=== PATIENT | female | born 1995 | race Asian ===

== ENCOUNTER 2020-05-30 01:18 | Inpatient (IN) | payer BC ==
[~2020-05-30] VITALS: Ht 162.6 cm; Wt 77.7 kg
[2020-05-30 02:06] LABS: Source, Urine Catheter
[2020-05-30 02:09] LABS: BASOPHILS ABSOLUTE AUTO 0.04 K/mm3 (0.00-0.23); BASOPHILS PERCENT AUTO 0 % (0-2); EOSINOPHILS ABSOLUTE AUTO 0.02 K/mm3 (0.00-0.68); EOSINOPHILS PERCENT AUTO 0 % (0-6); Hematocrit 45.8 % (33.0-51.0); Hemoglobin 15.2 g/dL (11.5-16.0); IMMATURE GRAN ABSOLUTE AUTO 0.05 K/mm3 (0.00-0.10); IMMATURE GRAN PERCENT AUTO 0 % (0-1); LYMPHOCYTES ABSOLUTE AUTO 2.98 K/mm3 (0.84-5.20); LYMPHOCYTES PERCENT AUTO 25 % (21-46); MONOCYTES ABSOLUTE AUTO 0.78 K/mm3 (0.16-1.47); MONOCYTES PERCENT AUTO 7 % (4-13); Mean Corpuscular HGB 28.9 pg (26.0-34.0); Mean Corpuscular HGB Conc 33.2 g/dL (31.5-36.5); Mean Corpuscular Volume 87 fL (80-100); Mean Platelet Volume 9.1 fL (9.1-12.4); NEUTROPHILS PERCENT AUTO 68 % (41-73); Platelet Count 361 K/mm3 (150-400); RDW Coefficient Variation 11.6 % (11.7-14.2); Red Blood Cell Count 5.26 M/mm3 (3.80-5.20); White Blood Cell Count 12.07 K/mm3 (4.00-11.30)
[2020-05-30 02:09] LABS: Bilirubin, Urine Neg (Neg); Blood, Urine 1+ (Neg); Glucose Qualitative, Urine Neg (Neg); Ketones, Urine Neg (Neg); Leukocyte Esterase, Urine Neg (Neg); Nitrite, Urine Neg (Neg); Protein, Urine Neg (Neg); Specific Gravity, Urine 1.005 (1.003-1.022); Urobilinogen, Urine NORM (Normal)
[2020-05-30 02:27] LABS: Appearance, Urine Clear (Clear); Color, Urine Yellow (P-Yellow)
[2020-05-30 02:30] LABS: Acetaminophen, Random <2.0 ug/mL (10.0-30.0); Alanine Aminotransfer (ALT/SGP 21 U/L (12-78); Albumin, Blood 3.9 g/dL (3.4-5.0); Alk Phos 90 U/L (50-136); Anion Gap 7 mmol/L (6-16); Aspartate Aminotrans (AST/SGOT 17 U/L (12-37); Bilirubin, Total 0.2 mg/dL (0.1-1.0); Blood Urea Nitrogen 8 mg/dL (8-24); Bun/Creatinine Ratio 11.1 (12.0-20.0); CO2, Blood 26 mmol/L (21-32); Calcium, Blood 9.4 mg/dL (8.5-10.1); Chloride, Blood 109 mmol/L (98-108); Creatinine, Blood 0.72 mg/dL (0.40-1.00); Ethanol (Alcohol), Blood, Med 14 mg/dL; Glomerular Filtration Rate >60 (60-); Glucose, Blood 118 mg/dL (70-99); Magnesium, Blood 2.3 mg/dL (1.6-2.4); Potassium, Blood 3.8 mmol/L (3.5-5.5); Salicylate <1.7 mg/dL (2.8-20.0); Sodium, Blood 142 mmol/L (136-145); Total Protein, Blood 7.9 g/dL (6.4-8.2)
[2020-05-30 02:30] LABS: Bacteria Few /hpf; Red Blood Cells, Urine 0-2 /hpf (0-2); Squamous Epithelial Cells Not Seen /hpf (Few); White Blood Cells, Urine 0-2 /hpf (0-5)
[2020-05-30 02:36] LABS: PCO2 Arterial 33.3 mmHg (35-45); PO2 Arterial 91.7 mmHg (80-100)
[2020-05-30 02:39] LABS: U Amphetamine Screen Not Detected; U Barbituate Screen Not Detected; U Benzodiazapine Screen DETECTED; U Buprenorphine Screen Not Detected; U Cannabinoids Screen Not Detected; U Cocaine Screen Not Detected; U Methadone Screen Not Detected; U Methamphetamine Screen Not Detected; U Opiates Screen Not Detected; U Oxycodone Screen Not Detected; U Phencyclidine Screen Not Detected; U Propoxyphene Screen Not Detected
--- NOTE | 2020-05-30 05:17 | NUR ---
ASSUMPTION OF CARE RECEIVED REPORT FROM KATHLEEN IN ED AT 0315. PATIENT ARRIVED TO UNIT NEW ADMISSION AT 0420. 4 PERSON ASSIST TO BED FROM [facility]. PATIENT SEDATED ON PROPOFOL OF 60MCG/KG/MIN AND VERSED OF 7MG/HR. ETT IN PLACE 7.5 AND 21CM AT THE TEETH. VENT SETTINGS AC 16, VTE 450, PEEP 5, FIO2 25% WITH SATS 100%. CENTRAL LINE TO RIJ, C/D/I. VITALS STABLE CHARTED, TITRATING LEVOPHED DOWN PER BLOOD PRESSURE TRENDS. WILL REVIEW ORDERS AND TREAT PRESCRIBED.
--- NOTE | 2020-05-30 07:15 | NUR ---
SHIFT SUMMARY PATIENT REMAINS INTUBATED AND SEDATED. VITALS STABLE. DECREASING LEVOPHED PER BLOOD PRESSURE AND PROPOFOL PER SEDATION LEVEL. ORDERS REVIEWED AND REPORT GIVEN TO MARY HADDAD.
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
--- NOTE | 2020-05-30 08:30 | NUR ---
INITIAL ASSESSMENT PATIENT INTUBATED AND SEDATED. PATIENT RESPONDING TO NOXIOUS STIMULI AND ORAL CARE WITH GROSS MOVEMENTS OF EXTREMITIES AND GRIMACING OF FACE. SCLERAL EDEMA NOTED. PATIENT AFEBRILE. NO SIGNS OF PAIN NOTED. PATIENT SATTING 90% AND GREATER ON AC 16, TV 450, PEEP 5 AND 25% FIO2. LUNGS CLEAR THROUGHOUT. PATIENT IN SR, HR LOW 50S TO 70. SBP 90S TO LOW 100S ON LEVOPHED DRIP. OG TO LIS. LAST DATE OF BM UNKNOWN. FERMIN DRAINING CLEAR/ LIGHT YELLOW COLORED URINE. CUTTING SCARS NOTED TO L FA. PROPOFOL INFUSING AT 30 MCG/ KG/ MINUTE, NS AT 125 MLS/ HOUR, VERSED AT 2 MG/ HOUR, LEVOPHED AT 2 MCG/ MINUTE. BED LOW, CALL LIGHT IN REACH. WILL CONTINUE TO MONITOR PATIENT FREQUENTLY THROUGHOUT SHIFT.
--- NOTE | 2020-05-30 12:30 | NUR ---
PATIENT AFEBRILE. PATIENT AGITATED AND STRONG WHEN SEDATION DECREASED. PATIENT DID SQUEEZE HANDS WHEN ASKED BUT DID NOT FOLLOW ANY OTHER COMMANDS AT THIS TIME. NO CHANGE IN VENT SETTINGS. LEVOPHED ON SB. PROPOFOL AT 50 MCG/ KG/ MINUTE. NO OTHER ACUTE CHANGES TO NOTE ON AT THIS TIME. WILL CONTINUE TO MONITOR.
[2020-05-30] MEDS ORDERED: MELATONIN5 M1 PO (14:45)
[2020-05-30] MEDS ORDERED: GABA100 PO (14:45)
[2020-05-30] MEDS ORDERED: GUANFACINE (14:46)
[2020-05-30] MEDS ORDERED: PRAZ1 PO (14:47)
[2020-05-30] MEDS ORDERED: TEMA7.5 PO (14:48)
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
--- NOTE | 2020-05-30 16:42 | NUR ---
ASSUMED CARE OF PT FROM CATIE HERNANDEZ. UPON ASSESSMENT PT WAS VERY RESTLESS IN BED, OVER BREATHING VENT. LEAD FRONT DESK AGENT AT BEDSIDE INITIATING PRCEDEX GTT DURING REPORT. AFTER GTT ADDED ON, PT RELAXED AND WAS ABLE TO REST. HRR, SINUS RHTYHM ON THE MONITOR. VENT REMAINS ON AC 16/450/5 FIO2 25%, LUNGS ARE CLEAR. OG TUBE TO LIS. FERMIN TO GRAVITY DRAINAGE.
--- NOTE | 2020-05-30 18:17 | NUR ---
SHIFT SUMMARY PT IS SEDATED ON VENT A/C 16/450/5 FIO2 25%. PRECEDEX GTT AND PROPOFOL BEING UTILIZED TO KEEP PT SEDATED TO TOLERATE THE VENT. VITALS ARE STABLE. SINUS ROSARIO ON THE MONITOR WITH RATE MID 50'S. POISON CONTROL RECENTLY CALLED FOR UPDATE WITH NO NEW RECOMMENDATIONS. FERMIN IN PLACE TO GRAVITY, DRAINING CLEAR YELLOW URINE.
--- NOTE | 2020-05-30 19:19 | NUR ---
ASSUMPTION OF CARE RECEIVED REPORT FROM DEMETRICE HADDAD. ASSUMED CARE OF PATIENT. PATIENT SEDATED ON PROPOFOL AND PRECEDEX, SAS OF 3, VENTILATED FIO2 OF 25% O2 SATS OF 99%. NO S/S OF DISTRESS. VITALS STABLE, IVF INFUSING ORDERED. FERMIN CATHETER DRAINING CLEAR, YELLOW URINE. WILL REVIEW ORDERS AND TREAT PRESCRIBED.
--- NOTE | 2020-05-30 20:20 | NUR ---
VISITOR MOTHER TO BEDSIDE PER CHARGE NURSE'S APPROVAL. DISCUSSED LENGTH OF STAY AND VISITING HOURS WITH MOTHER WHO JUST ARRIVED FROM [place]. SHE VERBALIZED UNDERSTANDING.
--- NOTE | 2020-05-30 23:27 | NUR ---
AGITATION AT 2300 PATIENT BEGAN PULLING AT RESTRAINTS, EYE OPENED. FOLLOWING COMMANDS. RN TO BEDSIDE ORIENTING TO SITUATION. PATIENT BECAME ANXIOUS, SHAKING, AND MAKING A WRITING MOTION WITH HER LEFT HAND. ASKED PATIENT IF SHE WANTED TO WRITE, PATIENT NODDED HEAD YES. PEN AND PAPER PROVIDED AND PATIENT BEGAN WRITING, UNABLE TO INTERPRET PATIENT'S WRITING EXCEPT AN "H" AND A "U". ASKED PATIENT IF SHE WAS WRITING , NODDED HEAD YES. EXPLAINED HER HAD BEEN IN [place] AND WOULD RETURN TOMORROW. PATIENT BECAME VISIBILY UPSET, SHAKING HEAD NO, TREMORS TO ARMS AND PATIENT TRYING TO MOVE OUT OF BED. ASKED IF SHE WANTED HER HERE AND SHE SHOOK HER HEAD NO CONTINUOUSLY. EXPLAINED TO PATIENT SHE WAS SAFE, HER MOTHER HAD BEEN HERE AND WE WOULD KEEP HER COMFORTABLE. PATIENT BEGAN TO RELAX. RESTARTED PRECEDEX FOR COMFORT. PATIENT NOW SAS OF 3, VITALS STABLE. WILL CONTINUE TO MONITOR.
--- NOTE | 2020-05-31 | NUR ---
REASSESSMENT NO ACUTE CHANGES FROM PREVIOUS ASSESSMENT. SEDATED AND VENTILATED CHARTED. VITALS STABLE, NO S/S OF DISTRESS. FERMIN DRAINING CLEAR, YELLOW URINE. WILL CONTINUE TO MONITOR.
[2020-05-31 03:58] LABS: BASOPHILS ABSOLUTE AUTO 0.02 K/mm3 (0.00-0.23); BASOPHILS PERCENT AUTO 0 % (0-2); EOSINOPHILS ABSOLUTE AUTO 0.05 K/mm3 (0.00-0.68); EOSINOPHILS PERCENT AUTO 1 % (0-6); Hematocrit 35.9 % (33.0-51.0); Hemoglobin 12.3 g/dL (11.5-16.0); IMMATURE GRAN ABSOLUTE AUTO 0.02 K/mm3 (0.00-0.10); IMMATURE GRAN PERCENT AUTO 0 % (0-1); LYMPHOCYTES ABSOLUTE AUTO 1.34 K/mm3 (0.84-5.20); LYMPHOCYTES PERCENT AUTO 15 % (21-46); MONOCYTES ABSOLUTE AUTO 0.52 K/mm3 (0.16-1.47); MONOCYTES PERCENT AUTO 6 % (4-13); Mean Corpuscular HGB 29.4 pg (26.0-34.0); Mean Corpuscular HGB Conc 34.3 g/dL (31.5-36.5); Mean Corpuscular Volume 86 fL (80-100); Mean Platelet Volume 8.7 fL (9.1-12.4); NEUTROPHILS ABSOLUTE AUTO 7.16 K/mm3 (1.96-9.15); NEUTROPHILS PERCENT AUTO 79 % (41-73); Platelet Count 246 K/mm3 (150-400); RDW Coefficient Variation 11.6 % (11.7-14.2); Red Blood Cell Count 4.18 M/mm3 (3.80-5.20); White Blood Cell Count 9.11 K/mm3 (4.00-11.30)
--- NOTE | 2020-05-31 04:00 | NUR ---
REASSESSMENT NO ACUTE CHANGES FROM PREVIOUS ASSESSMENT. RT TO BEDISDE FOR BREATHING TRIAL, SEDATION TURNED OFF. WILL MONITOR PATIENT'S PROGRESS.
[2020-05-31 04:16] LABS: Alanine Aminotransfer (ALT/SGP 22 U/L (12-78); Albumin/Globulin Ratio 0.9 (0.8-1.8); Alk Phos 73 U/L (50-136); Anion Gap 7 mmol/L (6-16); Aspartate Aminotrans (AST/SGOT 19 U/L (12-37); Bilirubin, Total 0.7 mg/dL (0.1-1.0); Blood Urea Nitrogen 3 mg/dL (8-24); Bun/Creatinine Ratio 5.2 (12.0-20.0); CO2, Blood 22 mmol/L (21-32); Calcium, Blood 7.9 mg/dL (8.5-10.1); Chloride, Blood 115 mmol/L (98-108); Creatinine, Blood 0.57 mg/dL (0.40-1.00); Globulin, Blood 3.2 g/dL (2.2-4.0); Glomerular Filtration Rate >60 (60-); Glucose, Blood 99 mg/dL (70-99); Magnesium, Blood 1.8 mg/dL (1.6-2.4); Phosphorus, Blood 2.2 mg/dL (2.5-4.9); Potassium, Blood 3.1 mmol/L (3.5-5.5); Sodium, Blood 144 mmol/L (136-145); Total Protein, Blood 6.2 g/dL (6.4-8.2)
--- NOTE | 2020-05-31 04:45 | NUR ---
LABS REPORTED PATIENT'S POTASSIUM AND PHOS LEVELS TO DR. LOPEZ. RECIEVED ORDERS FOR POTASSIUM REPLACEMENT BUT DIRECTIONS TO HAVE DAY SHIFT PHYSICIAN ADDRESS PHOS LEVEL. WILL REPORT THIS TO ONCOMING RN.
[2020-05-31 05:28] LABS: PCO2 Arterial 30.4 mmHg (35-45); PO2 Arterial 73.1 mmHg (80-100); pH Blood Arterial 7.45 (7.35-7.45)
--- NOTE | 2020-05-31 06:10 | NUR ---
SHIFT SUMMARY PATIENT ON PROPOFOL OF 30MCG/KG/MIN, PRECEDEX OF 0.2 MCG/KG/HR, AWAKENS EASILY, FOLLOWS COMMANDS. NODS HEAD YES WHEN ASKED IF SHE IS COMFORTABLE. TOLERATING VENTILATOR WELL. VITALS STABLE. POTASSIUM REPLACEMENT INFUSING ORDERED. PATIENT REQUESTING TO WRITE, ASKING IF HER WILL BE HERE. THIS RN CLARIFIED IF PATIENT WOULD WANT MOTHER OR TO VISIT. PATIENT WROTE AND POINTED TO HIS NAME. ASKED IF MOTHER COULD VISIT PATIENT NODDED HEAD YES BUT THEN POINTED TO AGAIN PRIORITY VISITOR. EXPLAINED TO PATIENT WHEN SHE COULD EXPECT VISITORS AND THE PLAN TO KEEP HER RESTING UNTIL THE PHYSICIAN COMES IN TO SEE HER. PATIENT NODDED HEAD AND BEGAN RESTING. WILL CONTINUE TO MONITOR AND REPORT TO ONCOMING RN.
--- NOTE | 2020-05-31 08:30 | NUR ---
ASSUMED CARE / DR SETH: REPORT RECEIVED FROM SAHARA Tran RN. ASSUMED CARE OF THIS PT AT APPROX 0700. ON ASSESSMENT, THE PT IS LIGHTLY SEDATED W/ PROPOFOL & PRECEDEX - SEE FLOWSHEET FOR DRIP TITRATION. SHE IS OPENING EYES SPONTANEOUSLY, FOLLOWING DIRECTION & COMMUNICATING BY WRITING WORDS W/ A PEN & PAPER. SHE IS INTUBATED W/ A 7.5 ETT, NOTED TO BE 21.0 CM ATT. VENT SETTINGS: AC 16/450/5/25% W/ O2 SATS > 92%. MONITOR SHOWS SR-ST W/ HR 90-100s, BP STABLE. HYPOTENSION W/ SBP 90s NOTED DURING TIMES OF INCREASED SEDATION. OGT IN PLACE TO LIS, BT x4 QUADS. TEMP FERMIN PATENT/ DRAINING CLEAR YELLOW URINE. SKIN OVERALL CDI, SOME SCARRING NOTED TO L FA, PT's MOTHER HAS REPORTED THIS IS FROM SELF-HARM R/T "CUTTING." DR SETH HAS BEEN AT BEDSIDE TO EVAL PT. K & PHOS LEVELS DISCUSSED. SHE WOULD LIKE A F/U RENAL PANEL TO BE DRAWN AT 1000 & WILL ORDER FURTHER REPLETION PRN BASED ON THOSE RESULTS. SHE ALSO STS OKAY TO PLACE A PSYCH CONSULT IF IT IS DETERMINED THAT THE PT WILL BE EXTUBATED. WILL CONTINUE TO MONITOR & UPDATE NEEDED.
--- NOTE | 2020-05-31 09:20 | NUR ---
DR CARVER: PROVIDER AT BEDSIDE TO EVAL PT. SHE HAS CHANGED VENT SETTINGS TO SPONTANEOUS W/ PS 5, PEEP 5 & FIO2 25%. THE PT NEEDS ENCOURAGEMENT AT TIMES TO CONTINUE TAKING DEEP BREATHS SHE FALLS ASLEEP & DOES NOT HAVE AN ADEQUATE RR OR TVs. THE PLAN IS FOR POSSIBLE EXTUBATION AT APPROX 1000 IF PT CONTINUES TO TOLERATE WELL. ROSALINE Condon, RT, HAS BEEN NOTIFIED OF THIS.
[2020-05-31 10:41] LABS: Albumin, Blood 3.2 g/dL (3.4-5.0); Anion Gap 6 mmol/L (6-16); Blood Urea Nitrogen 3 mg/dL (8-24); Bun/Creatinine Ratio 4.7 (12.0-20.0); CO2, Blood 23 mmol/L (21-32); Calcium, Blood 8.2 mg/dL (8.5-10.1); Chloride, Blood 116 mmol/L (98-108); Creatinine, Blood 0.64 mg/dL (0.40-1.00); Glomerular Filtration Rate >60 (60-); Glucose, Blood 92 mg/dL (70-99); Phosphorus, Blood 2.7 mg/dL (2.5-4.9); Potassium, Blood 3.2 mmol/L (3.5-5.5); Sodium, Blood 145 mmol/L (136-145)
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
--- NOTE | 2020-05-31 15:03 | NUR ---
UDPATE: DR CARVER WILL BE SIGNING OFF OF THIS PT's CASE. STS OKAY TO TX TO MEDICAL FLOOR SINCE PRECEDEX HAS BEEN OFF SINCE APPROX 1235 & PT REMAINS STABLE W/ O2 SATS > 95% ON RA. SHE WOULD LIKE THE CENTRAL LINE TO R IJ & FERMIN TO BE D/C'd. STS OKAY TO FINISH CURRENT KCL INFUSION PRIOR TO CENTRAL LINE REMOVAL FOR PT's COMFORT. DR SETH IN UNIT & IS AGREEABLE TO TX. VALERIANO Verdugo, MODEL BUILDER DISPLAY, HAS CONTACTED DR RIOS TO DETERMINE IF HE WILL BE SEEING THE PT THIS SHIFT SHE IS VERY ANXIOUS REGARDING THIS. HE STS THAT HE IS UNABLE TO SEE THE PT TODAY BECAUSE OF NUMEROUS OTHER CONSULTS BUT SUGGESTS THAT TELEPSYCH MAY BE A GOOD OPTION IF THE PT IS ALERT & WILLING TO PARTICIPATE. DR SETH IS AGREEABLE TO THIS WELL & ORDERS HAVE BEEN PLACED.
[2020-05-31] MEDS ORDERED: GABA300 PO (15:09)
[2020-05-31] MEDS ORDERED: PRAZ1 PO (15:11)
[2020-05-31] MEDS ORDERED: NEURONTIN600 MG PO ×2 (15:11)
--- NOTE | 2020-05-31 15:30 | NUR ---
POISON CONTROL: CALL FROM [facility]. SHE HAS REQUESTED AN UPDATE ON THIS PT. UPDATED HER ON PT's VS & MOST RECENT LABS. SHE AGREES WITH A STATUS CHANGE TO MEDICAL FOR THIS PT & STS NO CHANGES AT THIS TIME. THEY WILL CONTINUE TO FOLLOW FOR NOW.
[2020-05-31] MEDS ORDERED: INTUNIV2 MG PO (16:01)
[2020-05-31] MEDS ORDERED: MIRT15 PO (16:03)
--- NOTE | 2020-05-31 17:12 | NUR ---
CENTRAL LINE REMOVAL / TRANSFER TO [facility] FLOOR: CL TO RIGHT IJ HAS BEEN REMOVED AT 1650. PT LYING SUPINE DURING THIS TIME. SHE IS ABLE TO TAKE A DEEP BREATH IN & HUM WHILE EXHALING WHILE CENTRAL LINE CATHETER IS REMOVED. MANUAL PRESSURE HELD TO SITE FOR APPROX 10 MINS AT WHICH TIME NO BLEEDING IS NOTED FROM SITE & TEGADERM CHG DRESSING IS PLACED TO COVER PUNCTURE SITE. REPORT HAS BEEN GIVEN TO CHRIS Mcknight RN TO ASSUME CARE. CHART & ALL PT BELONGINGS HAVE BEEN TAKEN UP TO ROOM 344 W/ PT. KASANDRA MCCRACKEN & TERESA, 1:1 SITTER AT BEDSIDE FOR TX VIA BED AT 1740.
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
--- NOTE | 2020-06-01 02:10 | NUR ---
VINNY REPORTS THE DYSURNIA IS VERY UNCOMFORTABLE AND SHE IS UNABLE TO SLEEP DUE TO HAVING TO USE THE BATHROOM SO MUCH. CALLED MD AND GOT ORDER FOR UA, AND FOR PYRIDIUM. WILL MEDICATE WHEN PHARMACY VERIFIES. CLEAN HAT PLACED IN BATHROOM.
[2020-06-01 03:42] LABS: Source, Urine Clean Catch
[2020-06-01 03:45] LABS: Bilirubin, Urine Neg (Neg); Blood, Urine 3+ (Neg); Glucose Qualitative, Urine Neg (Neg); Ketones, Urine 3+ (Neg); Leukocyte Esterase, Urine 1+ (Neg); Nitrite, Urine Neg (Neg); Protein, Urine Neg (Neg); Urobilinogen, Urine NORM (Normal)
[2020-06-01 03:53] LABS: Appearance, Urine Clear (Clear); Color, Urine Yellow (P-Yellow)
[2020-06-01 04:15] LABS: Bacteria Few /hpf; Red Blood Cells, Urine 0-2 /hpf (0-2); Squamous Epithelial Cells Few /hpf (Few); White Blood Cells, Urine 0-2 /hpf (0-5)
--- NOTE | 2020-06-01 05:11 | NUR ---
SHIFT SUMMARY: VINNY IS AOX3, PLEASANT AND COOPERATIVE THIS SHIFT. SHE DID VERBALIZE FRUSTRATIONS AT START OF SHIFT. PLEASE SEE MY ASSUMPTION OF CARE NOTE FOR DETAILS. SHE DENIED ANY THOUGHTS OF SUICIDE, HARMING SELF, OR OTHERS. STATES SHE WOULD NEVER DO THAT. 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 SHE STATED THIS WAS A MIS-UNDERSTANDING THAT SHE DID NOT KNOW ALCOHOL SHOULD NOT BE TAKEN WITH HER BENZO'S, AND THAT HER FRIEND MIS-UNDERSTOOD WHAT SHE WAS SAYING ON THE PHONE. ALSO VERIFIED WITH HER THAT HER IS NOT ABUSIVE PHYSICALLY OR EMOTIONALLY. SHE DID HAVE HER TELEHEALTH APPOINTMENT WHICH WENT WELL. HE DID TELL HER THAT HE DOES NOT SEE THE NEED FOR HER TO BE HERE BUT HAVE NOT SEEN THE REPORT. HER BEHAVIOR HAS BEEN APPROPRIATE THIS SHIFT. SHE HAS FREQUENT URINATION AND SEVERE DYSURIA. GOT ORDER FOR PYRIDIUM AND UA. UA WAS SENT FOR CULTURE, MORE THEN LIKELY DUE TO HER HAVING A CATHETER. 1:1 SITTER WAS IN ROOM ALL NIGHT. SHE HOPES SHE CAN GO HOME TODAY HER AND HER CAN NOT AFFORD TO MISS ANOTHER DAY. NO OTHER CHANGES TO REPORT THIS SHIFT. CALL LIGHT REMAINS IN REACH.
--- NOTE | 2020-06-01 05:43 | NUR ---
PATIENT HAS REFUSED MORNING LABS, STATES SHE HAS BEEN POKED ENOUGH AND DOES NOT WANT TO BE ANYMORE. THEY WILL WAIT TILL MORNING SHIFT AND SEE IF THEY CAN CONVINCE HER THEN.
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
--- NOTE | 2020-06-01 14:43 | NUR ---
DISCHARGE PT DISCHARGED TO HOME. THIS RN EXPLAINED DISCHARGE INSTRUCTIONS TO PT AND REPORTS SHE UNDERSTANDS. IV REMOVED WITHOUT DIFFICULTY. PT TRANSFERRED TO PRIVATE VEHICLE, INDEPENDENTLY. PT'S SPOUSE AT SIDE. BELONGINGS WITH PT.
[2020-06-01 14:49] LABS: Albumin, Blood 3.9 g/dL (3.4-5.0); Anion Gap 8 mmol/L (6-16); Blood Urea Nitrogen 6 mg/dL (8-24); Bun/Creatinine Ratio 9.1 (12.0-20.0); CO2, Blood 24 mmol/L (21-32); Chloride, Blood 109 mmol/L (98-108); Creatinine, Blood 0.66 mg/dL (0.40-1.00); Glomerular Filtration Rate >60 (60-); Glucose, Blood 123 mg/dL (70-99); Magnesium, Blood 2.3 mg/dL (1.6-2.4); Phosphorus, Blood 4.3 mg/dL (2.5-4.9); Potassium, Blood 3.8 mmol/L (3.5-5.5); Sodium, Blood 141 mmol/L (136-145)
== END 2020-06-01 14:32 | disposition home or self-care (01) | DRG 917 ==
LOC: ER 01:18 → MEDS 03:20 → EDBD 03:21 → ICUW 03:21 → ICUE 03:21 → MEDS 03:21 → ICUE 04:01 → MEDS 05-31 17:39
PROVIDERS: Emergency Medicine; Internal Medicine; Internal Medicine Critical Care Medicine; ADMIT Family Medicine
PROC: 02HV33Z Insertion of Infusion Device into Superior Vena Cava, Percutaneous Approach (ICD-10-PCS; principal; 2020-05-30)
PROC: 3E043XZ Introduction of Vasopressor into Central Vein, Percutaneous Approach (ICD-10-PCS; 2020-05-30)
PROC: 3E1G78Z Irrigation of Upper GI using Irrigating Substance, Via Natural or Artificial Opening (ICD-10-PCS; 2020-05-30)
PROC: 3E02340 Introduction of Influenza Vaccine into Muscle, Percutaneous Approach (ICD-10-PCS; 2020-05-30)
PROC: 0BH17EZ Insertion of Endotracheal Airway into Trachea, Via Natural or Artificial Opening (ICD-10-PCS; 2020-05-30)
PROC: 5A1945Z Respiratory Ventilation, 24-96 Consecutive Hours (ICD-10-PCS; 2020-05-30)
DX: T42.4X2A Poisoning by benzodiazepines, intentional self-harm, initial encounter (principal); J96.01 Acute respiratory failure with hypoxia; I95.2 Hypotension due to drugs; Y92.9 Unspecified place or not applicable; T68.XXXA Hypothermia, initial encounter; F10.929 Alcohol use, unspecified with intoxication, unspecified; F43.10 Post-traumatic stress disorder, unspecified; Y90.0 Blood alcohol level of less than 20 mg/100 ml; Z78.1 Physical restraint status; E87.6 Hypokalemia; Z23 Encounter for immunization
CPT/HCPCS: 31500; 31720; 36415; 36556; 36600; 43753; 51702; 70450; 71045; 80053; 80069; 81001; 81025; 82330; 82803; 83735; 84100; 84436; 84443; 85025; 87077; 87086; 87186; 93005; 93010; 94002; 94003; 96365-59; 96375-59; 96376-59; 99291-25; A9270; C1751; G0480; J0330; J1265; J1650; J2060; J2543; J2704; J3010; J3411; J3480; J7030; J7050; J7060; Q2038